=== PATIENT | female | born 1945 | race Caucasian/White ===

== ENCOUNTER 2019-03-18 09:58 | Inpatient (IN) | payer MEDICARE ==
[~2019-03-18] VITALS: Ht 163.8 cm; Wt 106.0 kg
[~2019-03-18 09:58] MED LIST: ALD25T PO; GLAT20KI3 SUBCUT; GUAN1TAB PO; HYDR-4069 PO; LEVO100T46 PO; VERA120T7 PO
[2019-03-18] MEDS ORDERED: normal saline 1000ML IV soln IVB ONE (10:45)
[2019-03-18] MEDS ORDERED: HYDROmorphone 1 mg/ml syringe IV ONE ×2 (11:00→12:55)
[2019-03-18 11:29] LABS: BASOPHILS % (AUTO) 0.6 % (0-1); EOSINOPHILS # (AUTO) 0.1 X10'3 (0-0.9); EOSINOPHILS % (AUTO) 1.1 % (0-6); HEMOGLOBIN 12.6 g/dl (12.0-16.0); LYMPHOCYTES # (AUTO) 1.3 X10'3 (1.1-4.8); LYMPHOCYTES % (AUTO) 16.3 % (21-51); MEAN CORPUSCULAR HGB CONC 33.1 g/dL (33.0-36.5); MEAN CORPUSCULAR VOLUME 93.8 FL (78-98); MEAN PLATELET VOLUME 7.5 FL (7.4-10.4); MONOCYTES # (AUTO) 0.5 X10'3 (0-0.9); MONOCYTES % (AUTO) 6.3 % (2-12); NEUTROPHILS # (AUTO) 5.8 X10'3 (1.8-7.7); NEUTROPHILS % (AUTO) 75.7 % (42-75); PLATELET COUNT 346 X10'3 (140-440); RED BLOOD COUNT 4.05 X10'6 (4.20-5.60); RED CELL DISTRIBUTION WIDTH 16.4 % (11.5-14.5); WHITE BLOOD COUNT 7.7 X10'3 (4.5-11.0)
[2019-03-18 11:30] LABS: ALANINE AMINOTRANSFERASE 21 U/L (12-78); ALBUMIN 3.4 G/DL (3.4-5.0); ALBUMIN/GLOBULIN RATIO 0.9 (1.1-1.5); ALKALINE PHOSPHATASE 79 IU/L (46-116); ANION GAP 9 (8-16); ASPARTATE AMINO TRANSFERASE 11 U/L (10-37); BILIRUBIN,TOTAL 0.4 MG/DL (0.1-1.0); BLOOD UREA NITROGEN 20 MG/DL (7-18); BUN/CREATININE RATIO 23.5 (6.6-38.0); CALCIUM 8.8 MG/DL (8.5-10.1); CHLORIDE 100 MMOL/L (99-107); CREATININE 0.85 MG/DL (0.40-0.90); GLUCOSE 198 MG/DL (70-104); POTASSIUM 3.4 MMOL/L (3.5-5.1); SODIUM 139 MMOL/L (135-145); eGFR 66 ML/MIN
--- NOTE | 2019-03-18 12:47 | NUR ---
notified Satish CALHOUN of blood pressure 239/129.
[2019-03-18] MEDS ORDERED: labetalol 20mg/4ml (5mg/ml) syringe IV ONE (12:55)
[2019-03-18] MEDS ORDERED: ondansetron/PF 4mg/2ml inj IV ONE (12:55)
[2019-03-18] MEDS ORDERED: bisacodyl 10mg suppository rectal RC PRN (13:25)
[2019-03-18] MEDS ORDERED: magnesium hydroxide 30ml (MOM) UD suspension PO PRN (13:25)
[2019-03-18] MEDS ORDERED: diphenhydrAMINE 25mg capsule PO PRN (13:25)
[2019-03-18] MEDS ORDERED: metoclopramide 5 mg/ml inj IV PRN (13:25)
[2019-03-18] MEDS ORDERED: magnesium Cl slow-release 64mg tablet PO PRN (13:25)
[2019-03-18] MEDS ORDERED: mag hydrox/Alum hydrox/simeth 30ml oral suspension PO PRN (13:25)
[2019-03-18] MEDS ORDERED: magnesium 2GM in 50ml NS 50 ML IV PRN (13:25)
[2019-03-18] MEDS ORDERED: diphenhydrAMINE 50 mg/ml inj IV PRN (13:25)
[2019-03-18] MEDS ORDERED: acetaminophen 325mg tablet PO PRN ×2 (13:25)
[2019-03-18] MEDS ORDERED: magnesium 4gm in 100ml NS 100 ML IV PRN (13:25)
[2019-03-18] MEDS ORDERED: potassium Cl 20 mEq SR tablet PO PRN (13:25)
[2019-03-18] MEDS ORDERED: potassium CL 10mEq/100ml bag 100 ML IV PRN ×2 (13:25)
[2019-03-18] MEDS ORDERED: CELE-193 PO (14:09)
[2019-03-18] MEDS ORDERED: ASPI-1265 PO (14:09)
[2019-03-18] MEDS ORDERED: DULO20CA50 PO (14:09)
[2019-03-18 15:00] VITALS: BP 187/87
[2019-03-18] MEDS ORDERED: LEVO175T7 PO (16:51)
[2019-03-18] MEDS ORDERED: SITA100T11 PO (16:51)
[2019-03-18] MEDS: HYDROcodone/acetaminophen 5mg/325mg tablet PO PRN (17:04)
--- NOTE | 2019-03-18 17:08 | NUR ---
VASC[employer]ING [employer] PAGED TO CLARIFY IF PATIENT NEEDS TO BE NPO FOR THE TEST. DR. WHITT UNSURE
--- NOTE | 2019-03-18 17:09 | NUR ---
DR. WHITT AT BEDSIDE. ORDERS CHANGED. TO BRING HOME MEDICATIONS SO WE CAN VERIFY NAMES AND DOSAGES.
--- NOTE | 2019-03-18 18:00 | NUR ---
Patient in room MED 314. I have received report from KEMI VELÁZQUEZ and had the opportunity to ask questions and assume patient care.
--- NOTE | 2019-03-18 18:27 | NUR ---
Problems reprioritized. Patient report given, questions answered & plan of care reviewed with EBER Ramírez.
[2019-03-18 18:30] VITALS: BP 185/88
[2019-03-18] MEDS: hydrALAZINE 25 MG tablet PO SCH (19:11)
[2019-03-18] MEDS: celeCOXIB 100mg capsule PO SCH (19:11)
[2019-03-18] MEDS: HYDROmorphone 1 mg/ml syringe IV PRN (19:32)
[2019-03-18] MEDS: fluticasone nasal spray 16GM bottle NS SCH (19:33)
[2019-03-18] MEDS: duloxetine 20mg capsule.DR PO SCH (19:34)
[2019-03-18] MEDS: potassium Cl 20 mEq SR tablet PO PRN (19:51)
[2019-03-18 20:00] VITALS: BP_SYST 170; BP_SYST 180; BP_SYST 187; BP_DIAS 81; BP_DIAS 84; BP_DIAS 91
[2019-03-18] MEDS ORDERED: guanFACINE 1 mg tablet PO SCH (20:00)
[2019-03-18] MEDS ORDERED: labetalol 100mg tablet PO SCH (20:00)
[2019-03-18] MEDS ORDERED: spironolactone 25 MG tablet PO SCH ×2 (21:00→21:07)
[2019-03-18] MEDS ORDERED: temazepam 15mg capsule PO PRN (21:00)
--- NOTE | 2019-03-18 21:44 | NUR ---
just administered spironolactone to pt at a non scheduled time, was to be given at 2100 but pill was not cut in half. Contacted pharm to cut pill, received half tab but scheduled dose for 2099 was no longer available in [facility].
[2019-03-18 22:00] VITALS: BP 175/81
[2019-03-18] MEDS: HYDROcodone/acetaminophen 10/325mg tab PO PRN (23:01)
[2019-03-18] MEDS: hydrALAZINE 20mg/ml inj. IV PRN (23:10)
--- NOTE | 2019-03-18 23:10 | NUR ---
Pt c/o headache pain that worsened when turning to her right. Pain meds given as ordered. Patient's BP 193/86, PRN hydralyzine given as ordered. Will continue to monitor.
[2019-03-19] VITALS (9 sets, daily range): BP systolic 162–206; BP diastolic 70–97
[2019-03-19] MEDS: HYDROmorphone 1 mg/ml syringe IV PRN ×4 (01:18→15:49)
[2019-03-19] MEDS: potassium Cl 20 mEq SR tablet PO PRN ×2 (01:39→05:25)
--- NOTE | 2019-03-19 03:00 | NUR ---
PATIENT'S SBP HAS CONTINUED TO STAY 180-210 DESPITE GIVING EVENING DOSE OF BP MEDS WELL PRN HYDRALYZINE AND PAIN MEDICATION. DR. RAZA CALLED AND HE CAME UP TO THE FLOOR. ORDERS CHANGED TO TENEX, 1MG TID INSTEAD OF BID. AND TO GIVE 0800 DOSE NOW. CHANGE VERAPAMIL TO TID AND NITROPATCH 0.2MG/HR. ORDERS PLACED AND WILL GIVE MEDICATION SOON AVAILABLE.
[2019-03-19] MEDS: nitroGLYCERIN 0.2mg/hour patch TD SCH ×2 (03:32→08:00)
[2019-03-19] MEDS: guanFACINE 1 mg tablet PO SCH ×3 (03:53→22:07)
[2019-03-19] MEDS: HYDROcodone/acetaminophen 10/325mg tab PO PRN ×2 (04:08→10:20)
--- NOTE | 2019-03-19 06:10 | NUR ---
Patient in room [facility] 314. I have received report from EBER Ramírez and had the opportunity to ask questions and assume patient care.
--- NOTE | 2019-03-19 06:34 | NUR ---
Problems reprioritized. Patient report given, questions answered & plan of care reviewed with Genie VELÁZQUEZ.
[2019-03-19] MEDS: K and/or MAG REPLACEMENT MC SCH (08:00)
--- NOTE | 2019-03-19 08:00 | NUR ---
Dr. Luevano aware of pt blood pressures in the 170s-190s. some medication changes made. will continue to treat with PRN IV Hydralazine as ordered. patient c/o headache. aware.
[2019-03-19] MEDS: aspirin 81mg tab.chew PO SCH (08:10)
[2019-03-19] MEDS: hydrALAZINE 25 MG tablet PO SCH ×3 (08:10→21:09)
[2019-03-19] MEDS: celeCOXIB 100mg capsule PO SCH ×2 (08:10→21:09)
[2019-03-19] MEDS: duloxetine 20mg capsule.DR PO SCH ×2 (08:11→21:10)
[2019-03-19] MEDS: linagliptin 5mg tablet PO SCH (08:11)
[2019-03-19] MEDS: levoTHYROXINE 175mcg tablet PO SCH (08:11)
[2019-03-19] MEDS: fluticasone nasal spray 16GM bottle NS SCH (08:23)
[2019-03-19] MEDS: hydrALAZINE 20mg/ml inj. IV PRN (10:19)
[2019-03-19] MEDS ORDERED: AMOX-580 PO (10:46)
[2019-03-19] MEDS ORDERED: FOLI0.4T2 PO (10:46)
[2019-03-19] MEDS ORDERED: CHOL200013 PO (10:46)
[2019-03-19] MEDS ORDERED: MAGN500C16 PO (10:46)
[2019-03-19] MEDS ORDERED: METH2.5T PO (10:46)
[2019-03-19] MEDS ORDERED: IRON1CAP13 PO (10:46)
[2019-03-19] MEDS ORDERED: HYDR200T84 PO (10:46)
[2019-03-19] MEDS: ondansetron/PF 4mg/2ml inj IV PRN (11:33)
[2019-03-19 12:22] LABS: HEMATOCRIT 37.9 % (35.0-45.0); HEMOGLOBIN 12.6 g/dl (12.0-16.0); MEAN CORPUSCULAR HEMOGLOBIN 31.4 PG (27.0-31.0); MEAN CORPUSCULAR HGB CONC 33.2 g/dL (33.0-36.5); MEAN CORPUSCULAR VOLUME 94.5 FL (78-98); MEAN PLATELET VOLUME 7.4 FL (7.4-10.4); PLATELET COUNT 348 X10'3 (140-440); RED BLOOD COUNT 4.01 X10'6 (4.20-5.60); RED CELL DISTRIBUTION WIDTH 16.2 % (11.5-14.5); WHITE BLOOD COUNT 9.7 X10'3 (4.5-11.0)
[2019-03-19 12:34] LABS: ALBUMIN 3.3 G/DL (3.4-5.0); ANION GAP 6 (8-16); BLOOD UREA NITROGEN 22 MG/DL (7-18); BUN/CREATININE RATIO 27.8 (6.6-38.0); CHLORIDE 103 MMOL/L (99-107); CHOL/HDL RATIO 3.8 (0.00-4.99); CHOLESTEROL 161 MG/DL (0-200); CREATININE 0.79 MG/DL (0.40-0.90); GLUCOSE 146 MG/DL (70-104); HDL CHOLESTEROL 42 MG/DL (35-60); LDL CHOLESTEROL 92 MG/DL (50-100); MAGNESIUM 2.2 MG/DL (1.5-2.4); PHOSPHORUS 2.6 MG/DL (2.3-4.5); POTASSIUM 4.5 MMOL/L (3.5-5.1); SODIUM 138 MMOL/L (135-145); TRIGLYCERIDES 218 MG/DL (20-135); eGFR 72 ML/MIN
[2019-03-19] MEDS: GLATIRAMER ACETATE 20 MG SUBCUT SCH (13:25)
--- NOTE | 2019-03-19 18:29 | NUR ---
Problems reprioritized. Patient report given, questions answered & plan of care reviewed with EBER Wong.
[2019-03-19] MEDS ORDERED: hydrALAZINE 25 MG tablet PO SCH ×2 (20:00)
[2019-03-19] MEDS: spironolactone 50 MG tablet PO SCH (20:00)
[2019-03-19] MEDS: HYDROmorphone 2mg tablet PO SCH (21:24)
[2019-03-19] MEDS: HYDROmorphone inj. 0.5 MG/0.5 ML DISP.SYRIN IV PRN (22:07)
[2019-03-20] VITALS (9 sets, daily range): BP systolic 146–190; BP diastolic 71–95
[2019-03-20] MEDS: HYDROmorphone 2mg tablet PO SCH ×6 (00:44→21:17)
[2019-03-20] MEDS: ondansetron/PF 4mg/2ml inj IV PRN ×4 (02:11→22:50)
[2019-03-20] MEDS: HYDROmorphone inj. 0.5 MG/0.5 ML DISP.SYRIN IV PRN ×4 (02:11→22:50)
[2019-03-20] MEDS: hydrALAZINE 25 MG tablet PO SCH ×4 (02:11→21:16)
[2019-03-20 04:54] LABS: HEMATOCRIT 35.1 % (35.0-45.0); HEMOGLOBIN 11.7 g/dl (12.0-16.0); MEAN CORPUSCULAR HEMOGLOBIN 31.5 PG (27.0-31.0); MEAN CORPUSCULAR HGB CONC 33.4 g/dL (33.0-36.5); MEAN CORPUSCULAR VOLUME 94.4 FL (78-98); MEAN PLATELET VOLUME 7.3 FL (7.4-10.4); PLATELET COUNT 349 X10'3 (140-440); RED BLOOD COUNT 3.72 X10'6 (4.20-5.60); RED CELL DISTRIBUTION WIDTH 16.3 % (11.5-14.5); WHITE BLOOD COUNT 8.9 X10'3 (4.5-11.0)
[2019-03-20 05:07] LABS: ALBUMIN 3.1 G/DL (3.4-5.0); ANION GAP 6 (8-16); BLOOD UREA NITROGEN 21 MG/DL (7-18); BUN/CREATININE RATIO 24.7 (6.6-38.0); CHLORIDE 103 MMOL/L (99-107); CREATININE 0.85 MG/DL (0.40-0.90); GLUCOSE 169 MG/DL (70-104); MAGNESIUM 2.1 MG/DL (1.5-2.4); PHOSPHORUS 2.7 MG/DL (2.3-4.5); POTASSIUM 4.7 MMOL/L (3.5-5.1); SODIUM 138 MMOL/L (135-145); TOTAL CARBON DIOXIDE 28.8 MMOL/L (24-32); eGFR 66 ML/MIN
--- NOTE | 2019-03-20 06:20 | NUR ---
Problems reprioritized. Patient report given, questions answered & plan of care reviewed with EBER Negro.
[2019-03-20] MEDS: GLATIRAMER ACETATE 20 MG SUBCUT SCH ×2 (08:00→15:13)
[2019-03-20] MEDS: K and/or MAG REPLACEMENT MC SCH (08:00)
[2019-03-20] MEDS: spironolactone 50 MG tablet PO SCH ×2 (09:33→21:16)
[2019-03-20] MEDS: duloxetine 20mg capsule.DR PO SCH ×2 (09:33→21:16)
[2019-03-20] MEDS: fluticasone nasal spray 16GM bottle NS SCH (09:33)
[2019-03-20] MEDS: guanFACINE 1 mg tablet PO SCH ×3 (09:34→22:50)
[2019-03-20] MEDS: linagliptin 5mg tablet PO SCH (09:34)
[2019-03-20] MEDS: celeCOXIB 100mg capsule PO SCH ×2 (09:35→21:16)
[2019-03-20] MEDS: levoTHYROXINE 175mcg tablet PO SCH (09:36)
[2019-03-20] MEDS: aspirin 81mg tab.chew PO SCH (09:37)
[2019-03-20] MEDS: nitroGLYCERIN 0.2mg/hour patch TD SCH ×2 (09:38→14:35)
[2019-03-20] MEDS ORDERED: iohexol 300 MG/1 ML 50ml polymer ONE (11:24)
[2019-03-20] MEDS ORDERED: iohexol 300mg/ml 100ml inj. ONE (11:25)
[2019-03-20] MEDS: amLODIPine 5mg tablet PO SCH ×2 (12:56→21:16)
[2019-03-20] MEDS: HYDROcodone/acetaminophen 10/325mg tab PO PRN ×2 (13:54→18:02)
--- NOTE | 2019-03-20 14:35 | NUR ---
Removed NTG patch per Dr. Nobles. Patient has continued to c/o head pain no matter what pain medications that are administered. Will continue to monitor this patient for duration of shift.
--- NOTE | 2019-03-20 14:37 | NUR ---
PAGER ID: [phone] MESSAGE: Dr. Anabelle BLANDON, pt in 314 still c/o headache pain 12/14 even after po dilaudid, IV dilaudid, po Kohler 10-325. Please advise, patient also has a NTG patch on as well. Thank you, Meredith Negro RN ACCE [id number]
--- NOTE | 2019-03-20 14:38 | NUR ---
Per Dr. Perdomo, take off the NTG patch and observe how patient does without the patch.
--- NOTE | 2019-03-20 18:30 | NUR ---
Problems reprioritized. Patient report given, questions answered & plan of care reviewed with EBER Wong.
[2019-03-21 02:03] VITALS: BP 165/78
[2019-03-21] MEDS: hydrALAZINE 25 MG tablet PO SCH ×4 (02:21→19:17)
[2019-03-21] MEDS: HYDROcodone/acetaminophen 10/325mg tab PO PRN (02:22)
[2019-03-21] MEDS: HYDROmorphone 2mg tablet PO SCH ×3 (04:00→08:19)
[2019-03-21] MEDS: aspirin/acetaminophen/caffeine tablet PO PRN ×3 (04:22→21:27)
[2019-03-21 05:09] LABS: MEAN CORPUSCULAR HEMOGLOBIN 30.9 PG (27.0-31.0); MEAN CORPUSCULAR HGB CONC 32.5 g/dL (33.0-36.5); MEAN CORPUSCULAR VOLUME 95.2 FL (78-98); MEAN PLATELET VOLUME 7.5 FL (7.4-10.4); PLATELET COUNT 429 X10'3 (140-440); RED BLOOD COUNT 3.89 X10'6 (4.20-5.60); RED CELL DISTRIBUTION WIDTH 16.5 % (11.5-14.5); WHITE BLOOD COUNT 9.8 X10'3 (4.5-11.0)
[2019-03-21 05:21] LABS: ALBUMIN 3.3 G/DL (3.4-5.0); ANION GAP 8 (8-16); BLOOD UREA NITROGEN 21 MG/DL (7-18); CALCIUM 9.2 MG/DL (8.5-10.1); CHLORIDE 103 MMOL/L (99-107); GLUCOSE 154 MG/DL (70-104); POTASSIUM 4.2 MMOL/L (3.5-5.1); SODIUM 140 MMOL/L (135-145); TOTAL CARBON DIOXIDE 29.1 MMOL/L (24-32); eGFR 55 ML/MIN
[2019-03-21 06:00] VITALS: BP 175/80
--- NOTE | 2019-03-21 06:10 | NUR ---
Patient in room [facility] 314. I have received report from EBER Wong and had the opportunity to ask questions and assume patient care.
[2019-03-21] MEDS: K and/or MAG REPLACEMENT MC SCH (08:00)
[2019-03-21] MEDS: guanFACINE 1 mg tablet PO SCH ×3 (08:17→21:27)
[2019-03-21] MEDS: celeCOXIB 100mg capsule PO SCH ×2 (08:17→19:17)
[2019-03-21] MEDS: duloxetine 20mg capsule.DR PO SCH ×2 (08:18→19:18)
[2019-03-21] MEDS: spironolactone 50 MG tablet PO SCH ×2 (08:18→19:18)
[2019-03-21] MEDS: linagliptin 5mg tablet PO SCH (08:18)
[2019-03-21] MEDS: fluticasone nasal spray 16GM bottle NS SCH (08:19)
[2019-03-21] MEDS: amLODIPine 5mg tablet PO SCH (08:19)
[2019-03-21] MEDS: aspirin 81mg tab.chew PO SCH (08:19)
[2019-03-21] MEDS: levoTHYROXINE 175mcg tablet PO SCH (08:31)
[2019-03-21 11:00] VITALS: BP_SYST 154; BP_SYST 178; BP_SYST 196; BP_DIAS 79; BP_DIAS 82
[2019-03-21] MEDS: GLATIRAMER ACETATE 20 MG SUBCUT SCH (15:05)
[2019-03-21] MEDS: losartan 50mg tablet PO SCH (17:33)
[2019-03-21] MEDS: HYDROmorphone inj. 0.5 MG/0.5 ML DISP.SYRIN IV PRN (17:34)
[2019-03-21 18:00] VITALS: BP 181/95
--- NOTE | 2019-03-21 18:30 | NUR ---
Problems reprioritized. Patient report given, questions answered & plan of care reviewed with Rosa VELÁZQUEZ.
[2019-03-21] MEDS: labetalol 100mg tablet PO SCH (19:16)
[2019-03-21] MEDS: HYDROcodone/acetaminophen 5mg/325mg tablet PO PRN (19:17)
[2019-03-21 22:00] VITALS: BP_SYST 149; BP_SYST 180; BP_SYST 199; BP_DIAS 72; BP_DIAS 85; BP_DIAS 87
[2019-03-21 22:20] VITALS: BP_SYST 149; BP_SYST 180; BP_SYST 199; BP_DIAS 72; BP_DIAS 85; BP_DIAS 87
[2019-03-22] VITALS (11 sets, daily range): BP systolic 104–163; BP diastolic 57–96
[2019-03-22] MEDS ORDERED: HYDROmorphone 1 mg/ml syringe ONE (00:37)
[2019-03-22] MEDS: ondansetron/PF 4mg/2ml inj IV PRN (00:48)
[2019-03-22] MEDS: HYDROmorphone inj. 0.5 MG/0.5 ML DISP.SYRIN IV PRN (00:52)
[2019-03-22] MEDS: hydrALAZINE 25 MG tablet PO SCH ×4 (02:00→21:13)
[2019-03-22 05:15] LABS: HEMATOCRIT 33.3 % (35.0-45.0); MEAN CORPUSCULAR HEMOGLOBIN 31.4 PG (27.0-31.0); MEAN CORPUSCULAR HGB CONC 33.2 g/dL (33.0-36.5); MEAN CORPUSCULAR VOLUME 94.6 FL (78-98); MEAN PLATELET VOLUME 7.6 FL (7.4-10.4); PLATELET COUNT 376 X10'3 (140-440); RED BLOOD COUNT 3.52 X10'6 (4.20-5.60); RED CELL DISTRIBUTION WIDTH 15.9 % (11.5-14.5); WHITE BLOOD COUNT 8.2 X10'3 (4.5-11.0)
[2019-03-22 05:37] LABS: ANION GAP 8 (8-16); BLOOD UREA NITROGEN 26 MG/DL (7-18); BUN/CREATININE RATIO 24.5 (6.6-38.0); CHLORIDE 103 MMOL/L (99-107); CREATININE 1.06 MG/DL (0.40-0.90); GLUCOSE 117 MG/DL (70-104); MAGNESIUM 1.8 MG/DL (1.5-2.4); PHOSPHORUS 3.7 MG/DL (2.3-4.5); POTASSIUM 4.2 MMOL/L (3.5-5.1); SODIUM 139 MMOL/L (135-145); TOTAL CARBON DIOXIDE 28.2 MMOL/L (24-32); eGFR 51 ML/MIN
--- NOTE | 2019-03-22 06:27 | NUR ---
Gave report to Kleber. Answered all the questions.
--- NOTE | 2019-03-22 06:30 | NUR ---
Received report from EBER Negro and EBER Lee. Checked in on patient.
--- NOTE | 2019-03-22 06:30 | NUR ---
I have reviewed and agree with all interventions, assessments performed and documented by Heron.
[2019-03-22] MEDS: GLATIRAMER ACETATE 20 MG SUBCUT SCH ×2 (08:00→21:14)
[2019-03-22] MEDS: losartan 50mg tablet PO SCH (08:00)
[2019-03-22] MEDS: K and/or MAG REPLACEMENT MC SCH (08:11)
[2019-03-22] MEDS: fluticasone nasal spray 16GM bottle NS SCH (08:27)
[2019-03-22] MEDS: linagliptin 5mg tablet PO SCH (08:28)
[2019-03-22] MEDS: celeCOXIB 100mg capsule PO SCH ×2 (08:29→21:13)
[2019-03-22] MEDS: levoTHYROXINE 175mcg tablet PO SCH (08:29)
[2019-03-22] MEDS: guanFACINE 1 mg tablet PO SCH ×3 (08:30→21:12)
[2019-03-22] MEDS: labetalol 100mg tablet PO SCH ×2 (08:30→21:12)
[2019-03-22] MEDS: spironolactone 50 MG tablet PO SCH ×2 (08:30→21:13)
[2019-03-22] MEDS: duloxetine 20mg capsule.DR PO SCH ×2 (08:30→21:13)
[2019-03-22] MEDS: aspirin 81mg tab.chew PO SCH (08:30)
--- NOTE | 2019-03-22 08:38 | NUR ---
Pt refused Losartan 100mg due to it giving her a different kind of headache than what she has been experiencing. Reported that she has taken this medication in the past and that Dr. Nguyen added it tomedication regimen to see if she could tolerate. Will report to Dr. Nguyen that pt unable to take.
--- NOTE | 2019-03-22 09:10 | NUR ---
Initial: Pt admit with headache and hypertensive urgency. Pt currently on heart healthy CHO controlled diet documented with 75-100% PO intake meeting nutrient needs. Wt change in EMR likely d/t wt in lbs being documented in kg. LBM 03/21. No edema or wounds. No nutrition diagnosis at this time. Will continue to follow. Recommendations: 1) Continue heart healthy CHO controlled diet 2) Bowel care 3) Wt per rx Addendum: 03/22/19 at [address] Amended: Links added.
--- NOTE | 2019-03-22 12:10 | NUR ---
Dr. Zaldivar Tele-neuro report completed. Meredith Negro ACCE [id number]
--- NOTE | 2019-03-22 18:30 | NUR ---
Problems reprioritized. Patient report given, questions answered & plan of care reviewed with EBER Lee.
[2019-03-22] MEDS: HYDROcodone/acetaminophen 10/325mg tab PO PRN (21:55)
[2019-03-23 02:00] VITALS: BP 155/78
[2019-03-23 02:40] LABS: HEMATOCRIT 34.2 % (35.0-45.0); HEMOGLOBIN 11.5 g/dl (12.0-16.0); MEAN CORPUSCULAR HEMOGLOBIN 31.6 PG (27.0-31.0); MEAN CORPUSCULAR HGB CONC 33.7 g/dL (33.0-36.5); MEAN CORPUSCULAR VOLUME 93.6 FL (78-98); MEAN PLATELET VOLUME 7.6 FL (7.4-10.4); PLATELET COUNT 389 X10'3 (140-440); RED BLOOD COUNT 3.65 X10'6 (4.20-5.60); RED CELL DISTRIBUTION WIDTH 15.7 % (11.5-14.5); WHITE BLOOD COUNT 9.3 X10'3 (4.5-11.0)
[2019-03-23 02:52] LABS: ALBUMIN 3.1 G/DL (3.4-5.0); ANION GAP 11 (8-16); BLOOD UREA NITROGEN 29 MG/DL (7-18); BUN/CREATININE RATIO 26.9 (6.6-38.0); CALCIUM 9.1 MG/DL (8.5-10.1); CHLORIDE 104 MMOL/L (99-107); CREATININE 1.08 MG/DL (0.40-0.90); GLUCOSE 146 MG/DL (70-104); MAGNESIUM 1.7 MG/DL (1.5-2.4); PHOSPHORUS 3.5 MG/DL (2.3-4.5); POTASSIUM 4.2 MMOL/L (3.5-5.1); SODIUM 139 MMOL/L (135-145); TOTAL CARBON DIOXIDE 24.5 MMOL/L (24-32); eGFR 50 ML/MIN
[2019-03-23] MEDS: hydrALAZINE 25 MG tablet PO SCH ×2 (03:01→07:30)
[2019-03-23 06:00] VITALS: BP 172/77
--- NOTE | 2019-03-23 06:23 | NUR ---
Gave report to Pily. Answered all the questions.
[2019-03-23] MEDS: HYDROcodone/acetaminophen 10/325mg tab PO PRN (07:31)
[2019-03-23] MEDS: linagliptin 5mg tablet PO SCH (07:31)
[2019-03-23] MEDS: losartan 50mg tablet PO SCH (07:31)
[2019-03-23] MEDS: spironolactone 50 MG tablet PO SCH (07:31)
[2019-03-23] MEDS: levoTHYROXINE 175mcg tablet PO SCH (07:31)
[2019-03-23] MEDS: duloxetine 20mg capsule.DR PO SCH (07:31)
[2019-03-23] MEDS: celeCOXIB 100mg capsule PO SCH (07:31)
[2019-03-23] MEDS: aspirin 81mg tab.chew PO SCH (07:31)
[2019-03-23] MEDS: guanFACINE 1 mg tablet PO SCH (07:31)
[2019-03-23] MEDS: fluticasone nasal spray 16GM bottle NS SCH (07:32)
[2019-03-23] MEDS: labetalol 100mg tablet PO SCH (07:32)
[2019-03-23] MEDS: K and/or MAG REPLACEMENT MC SCH (07:34)
[2019-03-23 08:00] VITALS: BP_SYST 121; BP_SYST 122; BP_SYST 123; BP_DIAS 64; BP_DIAS 67; BP_DIAS 68
[2019-03-23 11:00] VITALS: BP 122/67
[2019-03-23] MEDS ORDERED: LABE100T5 PO (12:28)
[2019-03-23] MEDS ORDERED: SPIR50TA5 PO (12:28)
[2019-03-23] MEDS ORDERED: LOSA50TA64 PO (12:28)
--- NOTE | 2019-03-23 12:50 | NUR ---
PROVIDED PATIENT WITH DISCHARGE INSTRUCTIONS WELL NEW PRESCRIPTION INFORMATION. PATIENT VERBALIZES UNDERSTANDING OF 3 NEW PRESCRIPTIONS, AND RECOMMENDATION TO FOLLOW UP WITH PRIMARY CARE DOCTOR NEXT WEEK. IV REMOVED, CATHETER INTACT, WITH NO BLEEDING CLEAN GAUZE APPLIED AND SECURED WITH TAPE. PATIENT GIVEN YELLOW RX WITH ALL NEW PRESCRIPTIONS, AND AWARE SHE CAN FILL THEM ANYWHERE SHE PREFERS. MEDICATIONS STORED IN [facility] WERE GIVEN BACK TO PATIENT. PATIENT ACCOMPANIED DOWN VIA WHEELCHAIR TO GO HOME WITH VIA PRIVATE VEHICLE.
== END 2019-03-23 13:20 | disposition home or self-care (01) | DRG 305 ==
LOC: ER 09:59 → ED HOLD 13:37 → MED 3N 14:30
PROVIDERS: ADMIT Family Medicine; ATTEND Internal Medicine
DX: I16.1 Hypertensive emergency (principal); E87.6 Hypokalemia; J32.2 Chronic ethmoidal sinusitis; G35 Multiple sclerosis; Z96.653 Presence of artificial knee joint, bilateral; H05.20 Unspecified exophthalmos; E05.00 Thyrotoxicosis with diffuse goiter without thyrotoxic crisis or storm; I45.81 Long QT syndrome; M06.9 Rheumatoid arthritis, unspecified; E11.9 Type 2 diabetes mellitus without complications; I10 Essential (primary) hypertension; Z85.41 Personal history of malignant neoplasm of cervix uteri; Z88.6 Allergy status to analgesic agent; Z88.8 Allergy status to other drugs, medicaments and biological substances; Z85.828 Personal history of other malignant neoplasm of skin; Z87.891 Personal history of nicotine dependence; Z90.710 Acquired absence of both cervix and uterus; Z90.49 Acquired absence of other specified parts of digestive tract
CPT/HCPCS: 36415; 70450; 70460; 70486; 71045; 80048; 80053; 80061; 82948; 83036; 83735; 83880; 84100; 84439; 84443; 84484; 85025; 85027; 85651; 87081; 93005; 93306; 93975; 96374; 96375; 99285; G0378; J0360; J1170; J2405; J3490; Q0163; Q9967

== ENCOUNTER 2020-11-10 05:45 | Emergency (ER) | payer MEDICARE ==
[~2020-11-10] VITALS: Ht 162.6 cm; Wt 94.1 kg
[~2020-11-10 05:45] MED LIST changes: -ALD25T PO; +ASPI-1265 PO; +CHOL200013 PO; +DULO20CA50 PO; +FOLI0.4T6 PO; +HYDR200T84 PO; +IRON1CAP13 PO; +LABE100T5 PO; -LEVO100T46 PO; +LEVO175T7 PO; +LOSA50TA64 PO; +MAGN500C16 PO; +METH2.5T PO; +SITA100T11 PO; +SPIR50TA5 PO; +VERA120T19 PO; -VERA120T7 PO
[2020-11-10] MEDS ORDERED: normal saline 1000ML IV soln IVB ONE (06:15)
[2020-11-10] MEDS ORDERED: ketorolac trometh. 30mg/ml inj. IV ONE (06:15)
[2020-11-10] MEDS ORDERED: ondansetron/PF 4mg/2ml inj IV ONE (06:15)
[2020-11-10] MEDS ORDERED: HYDR-3965 PO (07:13)
[2020-11-10] MEDS ORDERED: ONDA4TAB6 PO (07:13)
[2020-11-10] MEDS ORDERED: TADA20TA PO (07:13)
[2020-11-10] MEDS ORDERED: KETO10TA2 PO (07:13)
[2020-11-10 07:27] LABS: CLARITY,URINE SLIGHTLY CLOUDY (Clear); COLOR,URINE YELLOW (Yellow); GLUCOSE, URINE NEGATIVE (Neg); KETONES,URINE NEGATIVE (Neg); LEUKOCYTE ESTERASE ,URINE SMALL (Neg); NITRITES, URINE NEGATIVE (Neg); OCCULT BLOOD,URINE NEGATIVE (Neg); PH,URINE 5.5 (4.8-8.0); PROTEIN,URINE NEGATIVE (Neg); UROBILINOGEN,URINE 0.2 E.U/dL (0.2-1.0)
[2020-11-10 07:37] LABS: UA COLLECTION TYPE CLN CATCH MIDSTREAM
[2020-11-10 07:38] LABS: BACTERIA,URINE 1+ /HPF (Neg); RBC,URINE 0-2 /HPF (0-2); SQUAMOUS EPITHELIAL CELL,UR FEW /LPF (FEW); WBC,URINE 20-30 /HPF (0-4)
[2020-11-10 07:39] LABS: MUCUS STRANDS NONE SEEN /LPF (Neg); WBC CLUMPS,URINE FEW /HPF (NEGATIVE)
[2020-11-10] MEDS ORDERED: LEVO500T89 PO (08:09)
[2020-11-10] MEDS ORDERED: HYDROcodone/acetaminophen 10/325mg tab PO ONE (08:10)
[2020-11-10] MEDS ORDERED: levoFLOXACIN 250mg tablet PO ONE (08:10)
[2020-11-10 08:57] LABS: BASOPHILS % (AUTO) 0.3 % (0-1); EOSINOPHILS # (AUTO) 0.1 X10'3 (0-0.9); EOSINOPHILS % (AUTO) 0.9 % (0-6); HEMATOCRIT 32.8 % (35.0-45.0); HEMOGLOBIN 10.2 g/dl (12.0-16.0); LYMPHOCYTES # (AUTO) 0.6 X10'3 (1.1-4.8); LYMPHOCYTES % (AUTO) 7.5 % (21-51); MEAN CORPUSCULAR HEMOGLOBIN 25.9 PG (27.0-31.0); MEAN CORPUSCULAR HGB CONC 31.1 g/dL (33.0-36.5); MEAN CORPUSCULAR VOLUME 83.5 FL (78-98); MEAN PLATELET VOLUME 7.6 FL (7.4-10.4); MONOCYTES % (AUTO) 0.4 % (2-12); NEUTROPHILS % (AUTO) 90.9 % (42-75); PLATELET COUNT 389 X10'3 (140-440); RED BLOOD COUNT 3.93 X10'6 (4.20-5.60); RED CELL DISTRIBUTION WIDTH 18.2 % (11.5-14.5); WHITE BLOOD COUNT 7.7 X10'3 (4.5-11.0)
[2020-11-10 09:05] LABS: ALANINE AMINOTRANSFERASE 18 U/L (12-78); ALBUMIN 3.6 G/DL (3.4-5.0); ALBUMIN/GLOBULIN RATIO 1.1 (1.1-1.5); ALKALINE PHOSPHATASE 100 IU/L (46-116); ANION GAP 12 (8-16); ASPARTATE AMINO TRANSFERASE 13 U/L (10-37); BILIRUBIN,TOTAL 0.7 MG/DL (0.1-1.0); BLOOD UREA NITROGEN 31 MG/DL (7-18); CALCIUM 9.1 MG/DL (8.5-10.1); CHLORIDE 106 MMOL/L (99-107); CREATININE 1.29 MG/DL (0.40-0.90); GLUCOSE 193 MG/DL (70-104); LIPASE 103 U/L (73-393); POTASSIUM 3.9 MMOL/L (3.5-5.1); SODIUM 142 MMOL/L (135-145); TOTAL CARBON DIOXIDE 24.2 MMOL/L (24-32); TOTAL PROTEIN 6.9 G/DL (6.4-8.2); eGFR 41 ML/MIN
[2020-11-10 10:08] VITALS: BP 133/89
== END 2020-11-10 10:11 | disposition home or self-care (01) ==
LOC: ER 05:45
DX: N13.2 Hydronephrosis with renal and ureteral calculous obstruction (principal); E11.22 Type 2 diabetes mellitus with diabetic chronic kidney disease; I12.9 Hypertensive chronic kidney disease with stage 1 through stage 4 chronic kidney disease, or unspecified chronic kidney disease; N18.9 Chronic kidney disease, unspecified; G35 Multiple sclerosis; E05.00 Thyrotoxicosis with diffuse goiter without thyrotoxic crisis or storm; Z87.442 Personal history of urinary calculi; Z91.041 Radiographic dye allergy status; Z88.6 Allergy status to analgesic agent; Z88.8 Allergy status to other drugs, medicaments and biological substances; Z79.82 Long term (current) use of aspirin; Z79.899 Other long term (current) drug therapy
CPT/HCPCS: 36415; 74176; 80053; 81001; 82948; 83690; 85025; 87077; 87088; 87186; 96361; 96374; 96375; 99284; J1885; J2405; J7030

== ENCOUNTER 2020-12-29 09:32 | Emergency (ER) | payer MEDICARE ==
[~2020-12-29] VITALS: Ht 162.6 cm; Wt 90.0 kg
[~2020-12-29 09:32] MED LIST changes: +KETO10TA2 PO; +ONDA4TAB6 PO; +TADA20TA PO
[2020-12-29 10:41] LABS: EOSINOPHILS % (AUTO) 0.1 % (0-6); HEMOGLOBIN 8.2 g/dl (12.0-16.0); MEAN PLATELET VOLUME 7.2 FL (7.4-10.4); MONOCYTES # (AUTO) 0.6 X10'3 (0-0.9)
[2020-12-29 10:43] LABS: BASOPHILS # (AUTO) 0.1 X10'3 (0-0.2); BASOPHILS % (AUTO) 0.6 % (0-1); HEMATOCRIT 26.9 % (35.0-45.0); LYMPHOCYTES # (AUTO) 0.9 X10'3 (1.1-4.8); LYMPHOCYTES % (AUTO) 6.3 % (21-51); MEAN CORPUSCULAR HEMOGLOBIN 22.8 PG (27.0-31.0); MEAN CORPUSCULAR HGB CONC 30.7 g/dL (33.0-36.5); MEAN CORPUSCULAR VOLUME 74.4 FL (78-98); MONOCYTES % (AUTO) 3.9 % (2-12); NEUTROPHILS # (AUTO) 13.5 X10'3 (1.8-7.7); NEUTROPHILS % (AUTO) 89.1 % (42-75); PLATELET COUNT 684 X10'3 (140-440); RED BLOOD COUNT 3.61 X10'6 (4.20-5.60); RED CELL DISTRIBUTION WIDTH 19.5 % (11.5-14.5); WHITE BLOOD COUNT 15.1 X10'3 (4.5-11.0)
[2020-12-29] MEDS ORDERED: proCHLORperazine 10mg tablet PO ONE (10:45)
[2020-12-29 10:49] LABS: ALANINE AMINOTRANSFERASE 15 U/L (12-78); ALBUMIN 2.5 G/DL (3.4-5.0); ALBUMIN/GLOBULIN RATIO 0.7 (1.1-1.5); ALKALINE PHOSPHATASE 158 IU/L (46-116); ANION GAP 13 (8-16); ASPARTATE AMINO TRANSFERASE 16 U/L (10-37); BILIRUBIN,TOTAL 0.5 MG/DL (0.1-1.0); BLOOD UREA NITROGEN 29 MG/DL (7-18); BUN/CREATININE RATIO 26.1 (6.6-38.0); CALCIUM 8.2 MG/DL (8.5-10.1); CHLORIDE 104 MMOL/L (99-107); CREATININE 1.11 MG/DL (0.40-0.90); GLUCOSE 133 MG/DL (70-104); SODIUM 142 MMOL/L (135-145); TOTAL CARBON DIOXIDE 25.4 MMOL/L (24-32); TOTAL PROTEIN 6.2 G/DL (6.4-8.2); eGFR 48 ML/MIN
[2020-12-29 10:55] LABS: CLARITY,URINE SLIGHTLY CLOUDY (Clear); COLOR,URINE YELLOW (Yellow); GLUCOSE, URINE NEGATIVE (Neg); KETONES,URINE >=80 mg/dl (Neg); LEUKOCYTE ESTERASE ,URINE NEGATIVE (Neg); NITRITES, URINE NEGATIVE (Neg); OCCULT BLOOD,URINE NEGATIVE (Neg); PROTEIN,URINE TRACE mg/dl (Neg)
[2020-12-29 10:56] LABS: UA COLLECTION TYPE NON-SPECIFIED
[2020-12-29 10:59] LABS: LIPASE < 50 U/L (73-393)
[2020-12-29 11:02] LABS: ANISOCYTOSIS 2+; ELLIPTOCYTES FEW; HYPOCHROMASIA 1+; MICROCYTOSIS 1+; PLATELET ESTIMATE INCREASED; POLYCHROMASIA 1+; STOMATOCYTES 1+; TEAR DROP CELLS 1+
[2020-12-29 11:12] LABS: SQUAMOUS EPITHELIAL CELL,UR MANY /LPF (FEW)
[2020-12-29 11:14] LABS: BACTERIA,URINE 1+ /HPF (Neg); RBC,URINE 0-2 /HPF (0-2); WBC,URINE 0-4 /HPF (0-4)
--- NOTE | 2020-12-29 11:33 | NUR ---
PT WAS UP TO BSC, HAD LARGE BM. NEEDED ASSISTANCE BACK TO BED
[2020-12-29] MEDS ORDERED: normal saline 1000ML IV soln IVB ONE (11:55)
[2020-12-29] MEDS ORDERED: HYDROcodone/acetaminophen 5mg/325mg tablet PO ONE (12:00)
[2020-12-29 13:42] VITALS: BP 165/92
--- NOTE | 2020-12-29 13:45 | NUR ---
PT TOLERATED HER PO FLUIDS. PT REPORTS HER PAIN IS BETTER NOW
[2020-12-30] MEDS ORDERED: SPIR25TA5 PO (13:17)
[2020-12-30] MEDS ORDERED: HYDR-3972 PO (13:17)
[2020-12-30] MEDS ORDERED: GUAN2TAB PO (13:17)
[2020-12-30] MEDS ORDERED: CHOL500050 PO (13:17)
[2020-12-30] MEDS ORDERED: GABA-530 PO (13:17)
[2020-12-30] MEDS ORDERED: HYDR-4070 PO (13:17)
[2020-12-30] MEDS ORDERED: DOCU-342 PO (13:17)
[2020-12-30] MEDS ORDERED: VERA240T12 PO (13:17)
[2020-12-30] MEDS ORDERED: SULI150T50 PO (13:17)
== END 2020-12-29 14:20 | disposition home or self-care (01) ==
LOC: ER 09:32
DX: K59.00 Constipation, unspecified (principal); R19.7 Diarrhea, unspecified; G35 Multiple sclerosis; I10 Essential (primary) hypertension; E11.9 Type 2 diabetes mellitus without complications; Z87.442 Personal history of urinary calculi; Z90.49 Acquired absence of other specified parts of digestive tract; Z88.6 Allergy status to analgesic agent; Z88.8 Allergy status to other drugs, medicaments and biological substances; Z90.710 Acquired absence of both cervix and uterus; Z79.82 Long term (current) use of aspirin; Z79.899 Other long term (current) drug therapy
CPT/HCPCS: 96360; 99284; J7030; 36415; 74176; 80053; 81001; 83690; 84443; 84484; 85008; 85025; 93005; Q0164